=== PATIENT | male | born 1970 | race Asian ===

== ENCOUNTER 2018-05-21 09:10 | Emergency (ER) | payer OTHER ==
[~2018-05-21] VITALS: Ht 162.6 cm; Wt 108.9 kg
[~2018-05-21 09:10] MED LIST: LISI20TA11 PO
[2018-05-21 09:16] VITALS: BP 151/101; TEMP 98.5
== END 2018-05-21 09:43 | disposition home or self-care (01) ==
LOC: ED 09:10
DX: M25.512 Pain in left shoulder (principal)
CPT/HCPCS: 99281

== ENCOUNTER 2019-09-28 14:50 | Emergency (ER) | payer OTHER ==
[~2019-09-28] VITALS: Ht 162.6 cm; Wt 108.9 kg
[2019-09-28] MEDS ORDERED: METF500T PO (15:24)
[2019-09-28 15:41] LABS: PLATELET COUNT 262 K/uL (142-355)
[2019-09-28 15:45] LABS: POTASSIUM 3.7 mmol/L (3.6-5.2)
[2019-09-28 19:22] VITALS: BP 150/95; TEMP 99
== END 2019-09-28 19:22 | disposition home or self-care (01) ==
LOC: ED 14:50
PROVIDERS: Emergency Medicine
DX: J11.1 Influenza due to unidentified influenza virus with other respiratory manifestations (principal); R50.9 Fever, unspecified; J40 Bronchitis, not specified as acute or chronic; R00.0 Tachycardia, unspecified
CPT/HCPCS: 80053; 83605; 85027; 87040; 87502; 87651; 93005; 96360; 96361; 96365; 99284; J0696